=== PATIENT | male | born 1975 | race Caucasian/White ===

== ENCOUNTER 2017-03-13 21:51 | Inpatient (IN) | payer BC, OTHER ==
[~2017-03-13] VITALS: Ht 188 cm; Wt 70.3 kg
[2017-03-13] MEDS ORDERED: LORAZEPAM 1 MG TABLET PO PRN (22:30)
[2017-03-13] MEDS ORDERED: ONDANSETRON 4 MG/2 ML VIAL IM PRN (22:30)
[2017-03-13] MEDS ORDERED: MAG HYDROX/AL HYDROX/SIMETH 30 ML LIQUID UDC PO PRN (22:30)
[2017-03-13] MEDS ORDERED: diphenhydrAMINE 50 MG CAPSULE PO PRN (22:30)
[2017-03-13] MEDS ORDERED: DICYCLOMINE HCL 20 MG TABLET PO PRN (22:30)
[2017-03-13] MEDS ORDERED: LOPERAMIDE HCL 2 MG CAPSULE PO PRN ×2 (22:30)
[2017-03-13] MEDS ORDERED: ONDANSETRON ODT 4 MG TAB.RAPDIS SL PRN (22:30)
[2017-03-13] MEDS ORDERED: MIRALAX 17 GM POWD.PACK PO PRN (22:30)
[2017-03-13] MEDS ORDERED: THIAMINE HCL 200 MG/2 ML VIAL IM ONE (22:30)
[2017-03-13] MEDS ORDERED: IBUPROFEN 400 MG TABLET PO PRN (22:30)
[2017-03-13] MEDS ORDERED: LORAZEPAM 2 MG/1 ML VIAL IM PRN (22:30)
[2017-03-13] MEDS ORDERED: MAGNESIUM HYDROXIDE 30 ML LIQUID UDC PO PRN (22:30)
[2017-03-13 22:59] LABS: BASOPHILS # (AUTO) 0.1 K/uL (0.0-8.0); BASOPHILS % (AUTO) 1.1 % (0.0-2.0); EOSINOPHILS # (AUTO) 0.2 K/uL (0.0-0.7); EOSINOPHILS % (AUTO) 1.6 % (0.0-7.0); LYMPHOCYTES # (AUTO) 3.8 K/uL (20.0-40.0); LYMPHOCYTES % (AUTO) 38.9 % (20.5-51.5); MEAN CORPUSCULAR HEMOGLOBIN 31.8 uug (23.8-33.4); MEAN CORPUSCULAR HGB CONC 35 g/dL (32.5-36.3); MEAN CORPUSCULAR VOLUME 91.4 fL (73.0-96.2); MONOCYTES # (AUTO) 0.5 K/uL (2.0-10.0); MONOCYTES % (AUTO) 4.7 % (0.0-11.0); NEUTROPHILS # (AUTO) 5.3 K/uL (1.8-8.9); NEUTROPHILS % (AUTO) 53.7 % (38.5-71.5); PLATELET COUNT (AUTO) 168 K/uL (152-348); RED BLOOD CELL COUNT(AUTO) 5.36 MIL/uL (4.06-5.63); WHITE BLOOD COUNT (AUTO) 9.8 K/uL (3.6-10.2)
[2017-03-13 23:18] LABS: *AMPHETAMINE, URINE NEGATIVE (NEGATIVE); *BARBITURATE, URINE NEGATIVE (NEGATIVE); *CANNABINOID, URINE NEGATIVE (NEGATIVE); *COCCAINE, URINE NEGATIVE (NEGATIVE); *OPIATE, URINE NEGATIVE (NEGATIVE); *PHENCYCLIDINE SCREEN,URINE NEGATIVE (NEGATIVE)
[2017-03-13 23:19] LABS: CREATININE 0.8 mg/dL (0.6-1.3); MAGNESIUM 2.1 mg/dL (1.8-2.4); POTASSIUM 3.9 mmol/L (3.5-5.1); TOTAL PROTEIN, SERUM 9.6 g/dL (6.4-8.2)
[2017-03-13 23:27] LABS: THYROID STIMULATING HORMONE 0.442 mIU/mL (0.358-3.740)
--- NOTE | 2017-03-13 23:45 | NUR ---
Pre-assessment Note: [facility]. Pt is 41M who reported current ETOH dependence. BP: 139/94 HR: 116 T:97.3 RR:20 SpO2:98% Pain 0/10. Pt stated he came from [place] to [facility] with his . Explained rules and policies of the unit. Pt remains in stable condition at this time but with noted moderate anxiety. Will admit to [facility] unit.
[2017-03-13] MEDS: LORAZEPAM 1 MG TABLET PO PRN (23:50)
--- NOTE | 2017-03-13 23:57 | NUR ---
Admission Note: Pt admitted to [facility] unit at 2357. Pt is 41M, AOx4 without s/s of acute distress noted. Weight 155lbs Height: 5'2". Pt noted with allergy to Seafood, [place], and shellfish. Pt reported current ETOH use and Dependence. Initial CIWA score 16 for ETOH use. Pt noted with moderate withdrawal symptoms including tremors and anxiety. Pt drinks 3/4 to 1 bottle of Whiskey daily for the past 2 weeks. Pt last drank 4 shots of whiskey on 03/13/17 at 2200. Pt started drinking whiskey at the age of 14. Pt stated he has a hx of HTN, Ascites, Possible Testicular Cyst, Childhood Asthma, and self-diagnosed Anxiety and Depression. Pt brought with him a prescription of Librium obtained from [facility] for management of ETOH withdrawal symptoms. Pt reports his Primary Care Provider is Dr. Bryce Mullins at [facility]. Pt was recently seen in [facility] ER for intoxication on 03/11/17. Pt was hospitalized in same hospital on June 2016 for same incident and was noted with ascites which was drained. Treatment History includes a facility in [place] on July 2016 and [facility] on October 2014. Pt has no c/o pain at this time. Respirations even and unlabored. Bowel sounds active x4 quadrants. Pt following regular diet at home. Pt states he smokes 1 pack of cigarettes daily but has only started smoking for the past couple of days because he tried to stop drinking. Pt denies any suicidal ideation at this time. Encouraged patient to verbalize feelings. All needs attended and met. Call light functioning and within reach. Will continue to monitor.
[2017-03-14] VITALS (7 sets, daily range): BP systolic 115–152; BP diastolic 82–103
[2017-03-14] MEDS ORDERED: THIAMINE HCL 200 MG/2 ML VIAL ONE
--- NOTE | 2017-03-14 | NUR ---
PRN Ativan: Pt noted with CIWA 16. Pt observed with moderate withdrawal symptoms. 2mg PRN Ativan given as ordered. Will reassess.
--- NOTE | 2017-03-14 01:00 | NUR ---
PRN Benadryl: Pt still anxious and requested medication for sleep. Benadryl PRN given as ordered.
[2017-03-14] MEDS ORDERED: diphenhydrAMINE 50 MG CAPSULE ONE (01:06)
--- NOTE | 2017-03-14 01:10 | NUR ---
ONE TIME ATIVAN: Pt noted with elevated CIWA of 15 after 2mg Ativan PRN. Additional order of 2mg Ativan PRN given. Will continue to monitor.
[2017-03-14] MEDS ORDERED: LORAZEPAM 1 MG TABLET PO ONE (01:15)
[2017-03-14] MEDS ORDERED: LORAZEPAM 1 MG TABLET ONE ×2 (01:26)
--- NOTE | 2017-03-14 02:00 | NUR ---
Ativan Reassessment: Pt in bed with eyes closed. Respirations 16. Will let pt rest and reassess at routine time.
[2017-03-14] MEDS ORDERED: CHLO25CA22 PO (03:53)
--- NOTE | 2017-03-14 07:05 | NUR ---
End of Shift Notes: Pt is 41M, admitted for ETOH Dependence on 03/13/17. Pt is full code, on regular diet, and on fall/seizure precautions. Pt noted with allergy to seafood, cucumbers and shellfish. Pt reported hx of HTN, Ascites, Possible Testicular Cyst, Childhood Asthma, and self-diagnosed Anxiety and Depression. Pt slept for 4 hours. Last CIWA was 8 at 0400. Pt received PRN Ativan to manage withdrawal symptoms and PRN Benadryl for sleep. Fall and Sz precautions observed. Bed in lowest position. Side rails up x2. Call light functioning and within reach. All needs attended and met. Will endorse to day shift nurse.
--- NOTE | 2017-03-14 08:15 | NUR ---
START OF SHIFT NOTE Received report from night nurse, 41 year old male admitted for ETOH dependence. Patient currently not on any taper but PRN'S available for s/s of withdrawal. Per endorsement pt was given PRN Ativan/Benadryl effective per night nurse, last CIWA was 8, slept for 4 hours. Patient received awake, alert and oriented x4. Patient was educated regarding plan of care for the day and medication regimen. Safety measures in place. Call light with in reach. Will continue to monitor.
[2017-03-14] MEDS: FOLIC ACID 1 MG TABLET PO SCH (08:56)
[2017-03-14] MEDS: MULTIVITAMINS,THERAPEUTIC TABLET PO SCH (08:56)
[2017-03-14] MEDS: THIAMINE HCL 100 MG TABLET PO SCH (08:56)
[2017-03-14] MEDS ORDERED: TUBERCULIN,PURIF.PROT.DERIV. 5 TU/0.1 ML TEST ID ONE (09:00)
[2017-03-14] MEDS: LORAZEPAM 1 MG TABLET PO PRN (09:06)
--- NOTE | 2017-03-14 09:06 | NUR ---
PRN ATIVAN Patient was c/o of anxiety, agitation, Light headed, Sweats, Tremors, CIWA score 16, PRN Ativan 2mg PO given as ordered. Will cont to monitor and reassess.
[2017-03-14] MEDS ORDERED: INFLUENZA VACCINE 2017-2018 0.5 ML DISP.SYRIN IM ONE (10:00)
--- NOTE | 2017-03-14 10:06 | NUR ---
ATIVAN REASSESSMENT CIWA score noted 8, per pt Ativan was effective in reducing her anxiety agitation.
[2017-03-14] MEDS: LORAZEPAM 1 MG TABLET PO SCH ×3 (12:16→20:45)
[2017-03-14] MEDS: GABAPENTIN 300 MG CAPSULE PO SCH (14:16)
--- NOTE | 2017-03-14 19:15 | NUR ---
END OF SHIFT NOTE Gave report to night nurse, 41 year old male admitted for ETOH dependence. Patient remains A/O x4. Patient started on Ativan taper tolerating well. During shift pt was given PRN Ativan noted to be effective. Pt encouraged to attend groups and activities. Pt seen socializing with peers. Most recent CIWA was 7. All pertinent information provided to night nurse. Night nurse will continue to monitor.
--- NOTE | 2017-03-14 20:00 | NUR ---
START OF SHIFT NOTE RECEIVED REPORT FROM DAY SHIFT NURSE. PATIENT IS A 41 YEAR OLD MALE ADMITTED FOR ETOH DEPENDENCE. PATIENT IS ON 5 DAY ATIVAN TAPER. UPON ADMISSION, PATIENT DRINKS 3/4 -1 BOTTLE OF WHISKEY FOR 2 WEEKS. PATIENT REPORTS PMH OF HTN, ASCITES (JUNE 2016), POSSIBLE TESTICULAR CYST, CHILDHOOD ASTHMA, ANXIETY AND DEPRESSION. PATIENT IS ALLERGIC TO SEAFOOD AND CUCUMBER. SKIN INTACT. PATIENT WAS GIVEN PRN ATIVAN . LAST CIWA 7. RECEIVED PATIENT ALERT AND ORIENTED X 4. PATIENT PRESENT WITH ANXIETY, SLIGHT TREMORS, SWEATING, SWEATING, NO N/V, APPETITES IS GOOD. WILL ATTEND GROUPS TOMORROW AND HAD BOWEL MOVEMENT. WILL CONTINUE TO MONITOR.
[2017-03-14] MEDS: ACETAMINOPHEN 325 MG TABLET PO PRN (20:45)
--- NOTE | 2017-03-14 20:45 | NUR ---
PRN TYLENOL ADMINISTRATION PATIENT C/O HEADACHE 07/08. WILL MONITOR FOR EFFECTIVENESS
[2017-03-14] MEDS ORDERED: GABAPENTIN 300 MG CAPSULE PO SCH (21:00)
--- NOTE | 2017-03-14 21:45 | NUR ---
PRN TYLENOL RE-ASSESSMENT PATIENT STATES TYLENOL EFFECTIVE. NO PAIN AT THIS TIME. PAIN LEVEL 0/10
[2017-03-14] MEDS: TRAZODONE 50 MG TABLET PO PRN (22:45)
--- NOTE | 2017-03-14 22:45 | NUR ---
PRN DESYREL ADMINISTRATION PATIENT REQUESTS FOR SLEEP AID. WILL MONITOR FOR EFFECTIVENESS
--- NOTE | 2017-03-14 23:45 | NUR ---
PRN LONAYRGIO RE-ASSESSMENT PATIENT IN BED WITH EYES CLOSED. RESPIRATION EVEN AND UNLABORED. SAFETY MEASURES IN PLACE. CALL LIGHT IN REACH. WILL CONTINUE TO MONITOR.
[2017-03-15] VITALS: BP 107/63
--- NOTE | 2017-03-15 | NUR ---
CIWA DEFERRED PATIENT SLEEPING. CIWA DEFERRED. RESPIRATION EVEN AND UNLABORED. SAFETY MEASURES IN PLACE. CALL LIGHT IN REACH. WILL CONTINUE TO MONITOR
[2017-03-15 04:00] VITALS: BP 112/81
--- NOTE | 2017-03-15 04:00 | NUR ---
CIWA DEFERRED PATIENT SLEEPING. CIWA DEFERRED. RESPIRATION EVEN AND UNLABORED. SAFETY MEASURES IN PLACE. CALL LIGHT IN REACH. WILL CONTINUE TO MONITOR
--- NOTE | 2017-03-15 07:13 | NUR ---
END OF SHIFT NOTE PATIENT SLEPT 7 HOURS. FLUID INTAKE 860 ML. VOIDED X 1. BM X 1. PATIENT IS A 41 YEAR OLD MALE ADMITTED FOR ETOH DEPENDENCE. CONTINUE PATIENT IS ON ATIVAN TAPER, TOLERATED WELL AND NO ADVERSE REACTION . PATIENT PRESENT WITH ANXIETY, SLIGHT TREMORS, SWEATING, SWEATING, NO N/V BEGINNING OF SHIFT. APPETITE IS GOOD AND HAD BOWEL MOVEMENT. PATIENT COMPLIANT WITH MEDICATIONS. ENCOURAGE PATIENT TO ATTEND GROUPS. PATIENT WAS GIVEN PRN SLEEP MEDS. ON FALL/SEIZURE PRECAUTION. SAFETY MEASURES IN PLACE. CALL LIGHT IN REACH. WILL CONTINUE TO MONITOR. LAST CIWA 7.
--- NOTE | 2017-03-15 08:00 | NUR ---
Start of Shift Report: A/o x4 Lying in bed CIWA 6 c/o slight anxiety on 5 Day Jj Abdalla. Compliant with meds and staff. Encourage po fluids. Continue monitor for safety. Side rails up.
[2017-03-15 08:31] VITALS: BP 119/79
[2017-03-15] MEDS: THIAMINE HCL 100 MG TABLET PO SCH (09:09)
[2017-03-15] MEDS: LORAZEPAM 1 MG TABLET PO SCH ×3 (09:09→20:16)
[2017-03-15] MEDS: FOLIC ACID 1 MG TABLET PO SCH (09:09)
[2017-03-15] MEDS: MULTIVITAMINS,THERAPEUTIC TABLET PO SCH (09:09)
[2017-03-15] MEDS: GABAPENTIN 300 MG CAPSULE PO SCH ×2 (09:09→15:16)
[2017-03-15 12:40] VITALS: BP 141/90
[2017-03-15 13:11] LABS: HEPATITIS B SURFACE AG Negative (Negative)
[2017-03-15 17:01] VITALS: BP 141/87
--- NOTE | 2017-03-15 18:24 | NUR ---
END of Shift report: A/0 x4 skin w/d skin color good Ciwa 5 c/o anxiety on ativan taper. Attending groups in the am and pm. Continue to observe for safety. Side rails up.
[2017-03-15 20:00] VITALS: BP 133/86
--- NOTE | 2017-03-15 20:00 | NUR ---
START OF SHIFT NOTE RECEIVED REPORT FROM DAY SHIFT NURSE. PATIENT IS 41 YEAR OLD MALE ADMITTED FOR ETOH DEPENDENCE. PATIENT IS ON 5 DAY ATIVAN TAPER, TOLERATED WELL AND NO ADVERSE REACTION . PATIENT DID NOT REQUIRE ANY PRN MEDICATION . PATIENT ATTENDED GROUPS. LAST CIWA 6. PATIENT COMPLIANT WITH MEDICATIONS AND TREATMENT PLAN. RECEIVED PATIENT THE ROOM. ALERT AND ORIENTED X 4. PATIENT STATES HES ANXIOUS, SWEATING , NO N/V, NOTED WITH FINE TREMORS. DENIES ANY PAIN AT THIS TIME. PATIENT ATTENDED GROUPS. SAFETY MEASURES IN PLACE. CALL LIGHT IN REACH. WILL CONTINUE TO MONITOR
[2017-03-15] MEDS ORDERED: GABAPENTIN 300 MG CAPSULE PO SCH (21:00)
[2017-03-15] MEDS: TRAZODONE 50 MG TABLET PO PRN (22:53)
--- NOTE | 2017-03-15 22:53 | NUR ---
PRN TRAZADONE ADMINISTRATION PATIENT REQUESTS FOR SLEEP AID. WILL MONITOR FOR EFFECTIVENESS
[2017-03-16] VITALS: BP_SYST 103; BP_SYST 124; BP_DIAS 75; BP_DIAS 76
--- NOTE | 2017-03-16 | NUR ---
TRAZADONE RE-ASSESSMENT/CIWA DEFERRED PATIENT SLEEPING. CIWA DEFERRED. RESPIRATION EVEN AND UNLABORED. SAFETY MEASURES IN PLACE. CALL LIGHT IN REACH. WILL CONTINUE TO MONITOR.
[2017-03-16 04:00] VITALS: BP 109/65
--- NOTE | 2017-03-16 04:00 | NUR ---
CIWA DEFERRED PATIENT SLEEPING. CIWA DEFERRED. RESPIRATION EVEN AND UNLABORED. SAFETY MEASURES IN PLACE. CALL LIGHT IN REACH. WILL CONTINUE TO MONITOR.
--- NOTE | 2017-03-16 07:18 | NUR ---
END OF SHIFT NOTE PATIENT SLEPT 8 HOURS. FLUID INTAKE 700 ML. VOIDED X 3 . NO BM. PATIENT CONTINUE ON ATIVAN TAPER, TOLERATED WELL AND NO ADVERSE REACTION . PATIENT COMPLIANT WITH MEDICATION AND TREATMENT PLAN. PER PATIENT MEDICATIONS ARE EFFECTIVE IN CONTROLLING HIS WITHDRAWAL SYMPTOMS. PATIENT WAS ANXIOUS, SWEATING , NO N/V, NOTED WITH FINE TREMORS, DENIES ANY PAIN BEGINNING OF SHIFT. PATIENT DID WAS GIVEN PRN TRAZADONE FOR SLEEP. SAFETY MEASURES IN PLACE. CALL LIGHT IN REACH. WILL CONTINUE TO MONITOR. LAST CIWA 5 .
--- NOTE | 2017-03-16 07:45 | NUR ---
START OF SHIFT Endorse rcvd from ongoing nurse, client is in bed, he presents with depressed, anxious mood, flat affect, moist skin, flushed face, and fine tremors. He reports, anxiety, irritability, stomach cramps, decreased in appetite, restless legs, sweats, inability to sleep, and fatigue. Encourage client to increase PO fluid intake to facilitate detox. Encourage client to attend group therapy for skills to maintain sober. Client admitted for alcohol withdrawal, he is on is on 5 day Ativan taper (day 3), tolerating well. PRN Trazodone 50mg PO for inability to sleep, he slept 8 hrs. Call light within reach. Bed in lowest position, side rails x 2 up/padded. Seizure precautions.
[2017-03-16] MEDS: THIAMINE HCL 100 MG TABLET PO SCH (08:38)
[2017-03-16] MEDS: FOLIC ACID 1 MG TABLET PO SCH (08:38)
[2017-03-16] MEDS: LORAZEPAM 1 MG TABLET PO SCH ×2 (08:38→12:06)
[2017-03-16] MEDS: MULTIVITAMINS,THERAPEUTIC TABLET PO SCH (08:38)
[2017-03-16] MEDS: GABAPENTIN 300 MG CAPSULE PO SCH ×3 (08:38→20:51)
[2017-03-16 08:44] VITALS: BP 100/62
--- NOTE | 2017-03-16 08:58 | NUR ---
Nursing notes 8mm induration noted at left forearm TB site. Charge nurse and MD notified. Client denies any chest pain, night sweats, or cough.
[2017-03-16] MEDS: ACETAMINOPHEN 325 MG TABLET PO PRN (10:15)
[2017-03-16] MEDS: CLONIDINE HCL 0.1 MG TABLET PO PRN ×2 (10:15→17:27)
--- NOTE | 2017-03-16 11:46 | NUR ---
New order Chest x-ray: 8mm indurated PPD; rule-out active TB Client verbalized understanding.
[2017-03-16 12:28] VITALS: BP 109/72
--- NOTE | 2017-03-16 14:01 | NUR ---
Therapist prompted client to come to the group.
[2017-03-16 16:55] VITALS: BP 153/87
[2017-03-16] MEDS ORDERED: LORAZEPAM 1 MG TABLET PO SCH ×2 (17:00→21:00)
--- NOTE | 2017-03-16 17:49 | NUR ---
Client requests for Dr. Valdez to review his lab work in his next visit. Dr. Valdez stated, "Absolutely.' [facility] with machine adjuster leader case trim on 03/17/17.
--- NOTE | 2017-03-16 19:26 | NUR ---
There is no evidence of tuberculosis.
--- NOTE | 2017-03-16 19:29 | NUR ---
END OF SHIFT Client is in bed, a/o to name, place and situation. he continues to present with depressed, anxious mood, flat affect. Encourage needed to increase PO fluid, 800ml, void 3, stool x 3 brown/soft/small. Client is compliant with group therapy. PRN X 2 Clonidine 0.1mg PO for anxiety, irritability. Tylenol 650mg PO for TAFOYA 5/10, noted effective. Client admitted for alcohol withdrawal, he is on a modified 6 day Ativan taper (day 3), tolerating well. Call light within reach. Bed in lowest position, side rails x 2 up/padded. Seizure precautions. Endorsed to incoming nurse.
--- NOTE | 2017-03-16 19:30 | NUR ---
Start of shift note Received report from day shift nurse. Pt is a 41 yo male, A+Ox4, presenting to [facility] for ETOH dependence. Pt has Allergies to Seafood, cucumber, and shellfish, is on Full code status, and on Regular diet. Pt is on Fall and Seizure precautions. Pt has HX of HTN, Ascites, childhood Asthma, Anxiety, and Depression. Pt is on 6 day Ativan taper, tolerated well. No s/s of distress noted at this time. Respirations even and unlabored. Will continue to monitor.
[2017-03-16 20:13] VITALS: BP 131/89
[2017-03-17 00:14] VITALS: BP 127/84
[2017-03-17] MEDS: TRAZODONE 50 MG TABLET PO PRN (01:35)
--- NOTE | 2017-03-17 01:36 | NUR ---
PRN Trazodone Pt c/o inability to sleep and requested for PRN Trazodone. Medication given and tolerated well. Will reassess within 1 HR. Will continue to monitor.
--- NOTE | 2017-03-17 02:12 | NUR ---
PRN Trazodone Reassessment Medication effective. Pt is resting well in bed. No s/s of ASE/distress noted at this time. Respirations even and unlabored. Will continue to monitor.
[2017-03-17 04:40] VITALS: BP 124/78
--- NOTE | 2017-03-17 06:52 | NUR ---
End of shift note Pt is a 41 yo male, A+Ox4, presenting to [facility] for ETOH dependence. Pt has Allergies to Seafood, cucumber, and shellfish, is on Full code status, and on Regular diet. Pt is on Fall and Seizure precautions. Pt has HX of HTN, Ascites, childhood Asthma, Anxiety, and Depression. Pt is on 6 day Ativan taper, tolerated well. Pt was given PRN Trazodone @0136. Pt slept for a total of8 HRS. Last CIWA: 3 @0400. No s/s of distress noted at this time. Respirations even and unlabored. Will endorse to day shift nurse.
--- NOTE | 2017-03-17 07:32 | NUR ---
BEGINNING OF SHIFT Patient 24 year old male, admitting Dx: ETOH dependence. Patient endorsement report received from hourly shift nurse, all pertinent information discussed. Patient currently with ongoing 6 day modified ativan taper as ordered, per hourly shift well tolerated. Patient slept for 8 hours, received PRN: Trazodone during hourly shift. Patient with, last ciwa score of: 3. Patient received in bed awake, alert and oriented x4, educated regarding plan of care for the day and medication regimen. Safety measures in place. fall and seizure precautions observed at all times.
[2017-03-17 07:43] LABS: BASOPHILS % (AUTO) 0.8 % (0.0-2.0); EOSINOPHILS # (AUTO) 0.3 K/uL (0.0-0.7); EOSINOPHILS % (AUTO) 4.6 % (0.0-7.0); HEMATOCRIT 37.9 % (36.7-47.1); HEMOGLOBIN 13.1 g/dL (12.5-16.3); LYMPHOCYTES # (AUTO) 2.2 K/uL (20.0-40.0); LYMPHOCYTES % (AUTO) 36.4 % (20.5-51.5); MEAN CORPUSCULAR HEMOGLOBIN 31.8 uug (23.8-33.4); MEAN CORPUSCULAR HGB CONC 35 g/dL (32.5-36.3); MEAN CORPUSCULAR VOLUME 92.1 fL (73.0-96.2); MONOCYTES # (AUTO) 0.7 K/uL (2.0-10.0); MONOCYTES % (AUTO) 11.6 % (0.0-11.0); NEUTROPHILS # (AUTO) 2.8 K/uL (1.8-8.9); NEUTROPHILS % (AUTO) 46.6 % (38.5-71.5); PLATELET COUNT (AUTO) 128 K/uL (152-348); RED BLOOD CELL COUNT(AUTO) 4.12 MIL/uL (4.06-5.63)
[2017-03-17 08:05] LABS: BILIRUBIN,DIRECT 0.3 mg/dL (0.0-0.2); BILIRUBIN,TOTAL 1.3 mg/dL (0.2-1.0); CREATININE 0.8 mg/dL (0.6-1.3); MAGNESIUM 1.7 mg/dL (1.8-2.4); PHOSPHOROUS 4.7 mg/dL (2.5-4.9); POTASSIUM 4.4 mmol/L (3.5-5.1); TOTAL PROTEIN, SERUM 7.2 g/dL (6.4-8.2)
[2017-03-17 08:29] VITALS: BP 112/95
[2017-03-17] MEDS: MULTIVITAMINS,THERAPEUTIC TABLET PO SCH (09:00)
[2017-03-17] MEDS: THIAMINE HCL 100 MG TABLET PO SCH (09:00)
[2017-03-17] MEDS: FOLIC ACID 1 MG TABLET PO SCH (09:00)
[2017-03-17] MEDS: GABAPENTIN 300 MG CAPSULE PO SCH (09:00)
[2017-03-17] MEDS: LORAZEPAM 1 MG TABLET PO SCH ×3 (09:00→20:11)
[2017-03-17] MEDS ORDERED: MAGNESIUM OXIDE 400 MG TABLET PO ONE (09:45)
--- NOTE | 2017-03-17 09:45 | NUR ---
MAGNESIUM REPLACED Dr. Valdez aware of patients labs, m.7, replaced with 800mg mag ox as per MD orders at 0945, well tolerated.
[2017-03-17] MEDS: CLONIDINE HCL 0.1 MG TABLET PO PRN (10:07)
--- NOTE | 2017-03-17 10:08 | NUR ---
PRN CLONIDINE Patient reported increase in anxiety/agitation. Provided patient with non pharmacological interventions, with no relief, administered clonidine 0.1mg Po as ordered, will monitor effectiveness of medication. bp: 128/92 heart rate: 71.
--- NOTE | 2017-03-17 11:08 | NUR ---
CLONIDINE REASSESSMENT Patient reports medication effective, feels less anxious and agitated. patient encouraged to a attend group therapies/sessions to learn new coping skills to prevent relapse. will continue to monitor.
[2017-03-17 13:43] VITALS: BP 110/69
[2017-03-17] MEDS: GABAPENTIN 400 MG CAPSULE PO SCH ×2 (14:08→20:11)
[2017-03-17 16:56] VITALS: BP 105/66
--- NOTE | 2017-03-17 19:06 | NUR ---
END OF SHIFT Patient alert and oriented x4, compliant with therapeutic plan of care. Vital signs WNL during shift. patient with admitting Dx: ETOH dependence. Patient continues with ongoing modified 6 day Ativan taper as ordered, well tolerated, no ASE noted. Patient was administered PRN: Clonidine during shift, medication was effective one hour post administration. During shift presented with: fine tremors, mild sweats, anxiety, and restlessness. 0900 CIWA: 9; 1300 CIWA: 7; 1700 CIWA: 7 Detox medication effective at reducing withdrawal symptoms. Patient encouraged increase In PO Fluid intake as tolerated, to facilitate detox. Encouraged to attend group therapies/sessions to learn new coping skills to prevent relapse, noted attending and participating. Denies SI/HI. Patient endorsed to shift leader nurse, all pertinent information was discussed. Safety measures in place. call light with in reach.
--- NOTE | 2017-03-17 19:10 | NUR ---
Start of shift note Received report from day shift nurse. Pt is a 41 yo male, A+Ox4, presenting to [facility] for ETOH dependence. Pt has Allergies to Seafood, cucumber, and shellfish, is on Full code status, and on Regular diet. Pt is on Fall and Seizure precautions. Pt has HX of HTN, Ascites, childhood Asthma, Anxiety, and Depression. Pt is on 6 day Ativan taper, tolerated well. No s/s of distress noted at this time. Respirations even and unlabored. Will continue to monitor.
[2017-03-17] MEDS: CLONIDINE HCL 0.1 MG TABLET PO SCH (20:11)
[2017-03-17 20:12] VITALS: BP 125/71
[2017-03-18 00:56] VITALS: BP 128/75
[2017-03-18] MEDS: TRAZODONE 50 MG TABLET PO PRN ×2 (01:50→21:36)
--- NOTE | 2017-03-18 01:51 | NUR ---
PRN Trazodone Pt c/o inability to sleep and requested for PRN Trazodone. Medication given and tolerated well. Will reassess within 1 HR. Will continue to monitor.
[2017-03-18 04:22] VITALS: BP 124/71
--- NOTE | 2017-03-18 07:00 | NUR ---
End of shift note Pt is a 41 yo male, A+Ox4, presenting to [facility] for ETOH dependence. Pt has Allergies to Seafood, cucumber, and shellfish, is on Full code status, and on Regular diet. Pt is on Fall and Seizure precautions. Pt has HX of HTN, Ascites, childhood Asthma, Anxiety, and Depression. Pt is on 6 day Ativan taper, tolerated well. Pt was given PRN Trazodone @0151. Pt slept for a total of 7 HRS. Last CIWA: 3 @0400. No s/s of distress noted at this time. Respirations even and unlabored. Will endorse to day shift nurse.
--- NOTE | 2017-03-18 07:30 | NUR ---
START OF SHIFT Pt 41 y/o male admitted for etoh dependence. Pt received in room on bed with eyes closed resting, but easily arousable to name. Pt alert and oriented to name, place, and time. Perrla. Skin warm and slightly moist to touch. Respirations even and unlabored. Bilateral hand tremors noted slightly. It was reported that pt slept for 7 hours last night. Bed on lowest position with side rails x2 up for safety. Call light within reach. No distress noted at this time.
[2017-03-18 08:00] VITALS: BP 97/60
[2017-03-18] MEDS: MULTIVITAMINS,THERAPEUTIC TABLET PO SCH (08:49)
[2017-03-18] MEDS: GABAPENTIN 400 MG CAPSULE PO SCH ×3 (08:49→21:35)
[2017-03-18] MEDS: THIAMINE HCL 100 MG TABLET PO SCH (08:49)
[2017-03-18] MEDS: FOLIC ACID 1 MG TABLET PO SCH (08:49)
[2017-03-18] MEDS: LORAZEPAM 1 MG TABLET PO SCH ×2 (08:50→21:36)
[2017-03-18] MEDS: CLONIDINE HCL 0.1 MG TABLET PO SCH ×2 (09:00→21:36)
[2017-03-18] MEDS: CLONIDINE HCL 0.1 MG TABLET PO PRN (11:59)
--- NOTE | 2017-03-18 11:59 | NUR ---
PRN Pt states feels anxious. Catapres po prn per MD order given and tolerated well.
[2017-03-18 12:17] VITALS: BP 100/62
--- NOTE | 2017-03-18 12:59 | NUR ---
PRN CHERELLE Pt observed in room sitting on bed watching television.
[2017-03-18 16:00] VITALS: BP 110/72
--- NOTE | 2017-03-18 18:17 | NUR ---
END OF SHIFT Pt 41 y/o male admitted for ETOH dependence. Pt alert and oriented to name, place, and time. Perrla. Skin warm and slightly moist to touch. Respirations even and unlabored. Bilateral hand tremors noted. Pt with periods of anxiety this morning. Pt mostly isolative to room throughout the day. Pt did not attend group activity this morning. Pt was seen by MD today. Bed on lowest position with side rails x2 up for safety. Call light within reach. No distress noted at this time.
--- NOTE | 2017-03-18 19:15 | NUR ---
START OF SHIFT NOTE : Pt is a 41 yo male, admitted to [facility] for ETOH dependence. Pt has Allergies to Seafood, cucumber, and shellfish, is on Full code status, and on Regular diet. Pt is on Fall and Seizure precautions. Pt has HX of HTN, Ascites, childhood Asthma, Anxiety, and Depression. Pt is on 6 day Ativan taper, tolerating well. No s/s of distress noted at this time. Safety measures in place : bed on lowest position with side rails x2 up for safety, call light within reach. Will continue to monitor closely and offer help.
[2017-03-18] MEDS: HYDROXYZINE PAMOATE 25 MG CAPSULE PO PRN (19:43)
[2017-03-18 20:00] VITALS: BP 139/79
--- NOTE | 2017-03-18 21:00 | NUR ---
PRN DESYREL, VISTARIL Pt. complains of sleeplessness and increased level of anxiety. PRN DESYREL, VISTARIL given as ordered. Safety measures in place : bed on lowest position with side rails x2 up for safety, call light within reach. Will continue to monitor closely and offer help.
--- NOTE | 2017-03-18 22:00 | NUR ---
RE-ASSESSMENT ANNY QUEZADA Pt. is sleeping, RR=16 unlabored and even. Safety measures in place : bed on lowest position with side rails x2 up for safety, call light within reach. Will continue to monitor closely and offer help.
--- NOTE | 2017-03-19 06:49 | NUR ---
END OF SHIFT NOTE : Pt is a 41 yo male, admitted to [facility] for ETOH dependence. Pt has Allergies to Seafood, cucumber, and shellfish, is on Full code status, and on Regular diet. Pt is on Fall and Seizure precautions. Pt has HX of HTN, Ascites, childhood Asthma, Anxiety, and Depression. Pt remains compliant with the treatment plan. PRN DESYREL, VISTARIL given during my shift. V/S remain WNL. RR=16, even and unlabored, lungs clear upon auscultation, abdomen soft and non- distended. Pt denies nausea, vomiting and diarrhea. CIWA taken when pt. was alert during the night, LAST CIWA=3 at 0400 , PESVAS=5053 ml, voided x3, slept 6 hours. Safety measures in place : bed on lowest position with side rails x2 up for safety, call light within reach. Will continue to monitor closely and offer help.
--- NOTE | 2017-03-19 07:30 | NUR ---
START OF SHIFT Pt 41 y/o male admitted for etoh dependence. Pt received in room on bed with eyes closed resting, but easily arousable to name. Pt alert and oriented to name, place, and time. Perrla. Skin warm and slightly moist to touch. Respirations even and unlabored. Pt with some anxiety noted this morning. It was reported that pt slept for 6 hours last night. Bed on lowest position with side rails x2 up for safety. Call light within reach. No distress noted at this time.
[2017-03-19 08:00] VITALS: BP 106/67
[2017-03-19] MEDS: MULTIVITAMINS,THERAPEUTIC TABLET PO SCH (08:42)
[2017-03-19] MEDS: GABAPENTIN 400 MG CAPSULE PO SCH ×3 (08:42→21:20)
[2017-03-19] MEDS: HYDROXYZINE PAMOATE 25 MG CAPSULE PO PRN ×3 (08:42→21:19)
[2017-03-19] MEDS: FOLIC ACID 1 MG TABLET PO SCH (08:42)
[2017-03-19] MEDS: CLONIDINE HCL 0.1 MG TABLET PO SCH ×2 (08:42→21:19)
--- NOTE | 2017-03-19 08:45 | NUR ---
prn Pt states feels anxious. Vistaril po prn per MD order given and tolerated well.
[2017-03-19] MEDS ORDERED: LORAZEPAM 1 MG TABLET PO SCH (09:00)
[2017-03-19] MEDS: THIAMINE HCL 100 MG TABLET PO SCH (09:06)
--- NOTE | 2017-03-19 09:45 | NUR ---
PRN EVAL Pt states medication effective.
[2017-03-19 12:00] VITALS: BP 98/56
--- NOTE | 2017-03-19 15:22 | NUR ---
PRN Pt states feels anxious. Vistaril po prn per MD order given and tolerated well.
[2017-03-19] MEDS ORDERED: GABA-536 PO (15:43)
[2017-03-19] MEDS ORDERED: IBUP-1953 PO (15:43)
[2017-03-19] MEDS ORDERED: TRAZ-144 PO (15:43)
[2017-03-19] MEDS ORDERED: CLON0.1T14 PO (15:43)
[2017-03-19] MEDS ORDERED: HYDR-3895 PO (15:43)
[2017-03-19 16:00] VITALS: BP 116/67
--- NOTE | 2017-03-19 16:22 | NUR ---
CHUY VILLARREAL Pt observed in room watching television.
--- NOTE | 2017-03-19 19:15 | NUR ---
START OF SHIFT NOTE : Pt is a 41 yo male, admitted to [facility] for ETOH dependence. Pt has Allergies to Seafood, cucumber, and shellfish, is on Full code status, and on Regular diet. Pt is on Fall and Seizure precautions. Pt has HX of HTN, Ascites, childhood Asthma, Anxiety, and Depression. Pt. completed 6 day Ativan taper, tolerated well. Pt. complains of sleeplessness and increased level of anxiety. Pt. will be D/C tomorrow in A.M. Safety measures in place : bed on lowest position with side rails x2 up for safety, call light within reach. Will continue to monitor closely and offer help.
[2017-03-19 20:00] VITALS: BP 131/78
[2017-03-19] MEDS: TRAZODONE 50 MG TABLET PO PRN (21:20)
--- NOTE | 2017-03-20 06:19 | NUR ---
END OF SHIFT NOTE : Pt is a 41 yo male, admitted to [facility] for ETOH dependence. Pt has Allergies to Seafood, cucumber, and shellfish, is on Full code status, and on Regular diet. Pt is on Fall and Seizure precautions. Pt has HX of HTN, Ascites, childhood Asthma, Anxiety, and Depression. Pt. completed 6 day Ativan taper, tolerated well. Pt. will be D/C today in A.M. Pt remains compliant with the treatment plan. PRN DESYREL, VISTARIL given during my shift. V/S remain WNL. RR=16, even and unlabored, lungs clear upon auscultation, abdomen soft and non- distended. Pt denies nausea, vomiting and diarrhea. CIWA taken when pt. was alert during the night, LAST CIWA=2 at 0400 , LJMOJJ=087 ml, voided x1 , slept 7 hours. Safety measures in place : bed on lowest position with side rails x2 up for safety, call light within reach. Will continue to monitor closely and offer help.
--- NOTE | 2017-03-20 07:15 | NUR ---
START OF SHIFT NOTE : Pt is a 41 yo male, admitted to [facility] for ETOH withdrawal. Pt has Allergies to Seafood, cucumber, and shellfish, is on Full code status, and on Regular diet. Pt is on Fall and Seizure precautions. Pt has HX of HTN, Ascites, childhood Asthma, Anxiety, and Depression. Pt. completed 6 day Ativan taper. Patient asleep in bed at this time, breathing even and unlabored, preparing for DC to home this AM. Last CIWA 2 @ 1999, prn Vistaril and desaryl given po on PM shift. Safety measures in place : bed on lowest position with side rails x2 up for safety, call light within reach. Will continue to monitor closely and offer help.
[2017-03-20 08:00] VITALS: BP 127/82
[2017-03-20] MEDS: MULTIVITAMINS,THERAPEUTIC TABLET PO SCH (08:30)
[2017-03-20] MEDS: THIAMINE HCL 100 MG TABLET PO SCH (08:30)
[2017-03-20] MEDS: FOLIC ACID 1 MG TABLET PO SCH (08:30)
[2017-03-20 08:31] VITALS: BP 127/80
[2017-03-20] MEDS: CLONIDINE HCL 0.1 MG TABLET PO SCH (08:31)
[2017-03-20] MEDS: GABAPENTIN 400 MG CAPSULE PO SCH (08:35)
--- NOTE | 2017-03-20 09:34 | NUR ---
DISCHARGE NOTE PATIENT IS IN STABLE CONDITION, VITALS WNL, SKIN INTACT, DENIES ANY SUICIDAL OR HOMICIDAL IDEATIONS, ALL DC PAPERWORK SIGNED AND DATED, PT WAS DISCHARGED FROM [facility] ON 03/20/2017 @ 4806. PATIENT LEFT THE BUILDING WITH ALL HIS BELONGINGS AND PRESCRIPTIONS.
== END 2017-03-20 09:34 | disposition home or self-care (01) | DRG 895 ==
LOC: SRC 22:19
PROVIDERS: ADMIT Internal Medicine; ATTEND Internal Medicine
PROC: HZ2ZZZZ Detoxification Services for Substance Abuse Treatment (ICD-10-PCS; principal; 2017-03-13)
PROC: HZ41ZZZ Group Counseling for Substance Abuse Treatment, Behavioral (ICD-10-PCS; 2017-03-15)
PROC: HZ31ZZZ Individual Counseling for Substance Abuse Treatment, Behavioral (ICD-10-PCS; 2017-03-16)
DX: F10.230 Alcohol dependence with withdrawal, uncomplicated (principal); K85.20 Alcohol induced acute pancreatitis without necrosis or infection; D69.6 Thrombocytopenia, unspecified; E83.42 Hypomagnesemia; K70.10 Alcoholic hepatitis without ascites; Y90.8 Blood alcohol level of 240 mg/100 ml or more; F32.9 Major depressive disorder, single episode, unspecified; J45.20 Mild intermittent asthma, uncomplicated; I15.9 Secondary hypertension, unspecified; F41.9 Anxiety disorder, unspecified; F17.210 Nicotine dependence, cigarettes, uncomplicated; K76.0 Fatty (change of) liver, not elsewhere classified; R76.11 Nonspecific reaction to tuberculin skin test without active tuberculosis; F13.90 Sedative, hypnotic, or anxiolytic use, unspecified, uncomplicated
CPT/HCPCS: 36415; 70030-TC; 71045; 80307; 80346; 83690; 83735; 84100; 84443; 85025; 85610; 86580; 86592; 86705; 86803; 87340; 87806; 90686; A4663; G0480; J3411; Q0163